=== PATIENT | male | born 1965 | race Caucasian/White ===

== ENCOUNTER 2018-02-08 16:22 | Emergency (ER) | payer OTHER ==
[~2018-02-08] VITALS: Ht 5703.2 cm; Wt 60.0 kg
[2018-02-08] MEDS ORDERED: etomidate 2mg/ml inj. IV ONE (16:35)
[2018-02-08] MEDS ORDERED: fentaNYL/PF 50MCG/1 ML 2ML syringe IV ONE (16:40)
[2018-02-08 17:13] VITALS: BP 129/78
== END 2018-02-08 17:44 | disposition home or self-care (01) ==
LOC: ER 16:24
DX: S43.004A Unspecified dislocation of right shoulder joint, initial encounter (principal); V18.0XXA Pedal cycle driver injured in noncollision transport accident in nontraffic accident, initial encounter; Y93.89 Activity, other specified; Y92.89 Other specified places as the place of occurrence of the external cause
CPT/HCPCS: 23650; 73020; 99285; A4565; J3010; J3490; L3650